=== PATIENT | male | born 1975 | race Two or more races ===

== ENCOUNTER 2016-04-24 10:39 | Emergency (ER) | payer MEDICAID ==
[~2016-04-24] VITALS: Ht 180.3 cm; Wt 81.6 kg
[2016-04-24 11:05] VITALS: BP 171/94
--- NOTE | 2016-04-24 11:30 | PHYS DOC ---
Adult General Chief Complaint Chief Complaint: ABSCESS HPI HPI Patient is a 40 year old male presents with an abscess to rectum for one week. Denies fever, body aches, or recent antibiotic use. Review of Systems Review of Systems Constitutional: Denies fever or chills Eyes: Denies change in visual acuity, redness, or eye pain HENT: Denies nasal congestion or sore throat Respiratory: Denies cough or shortness of breath Cardiovascular: No additional information not addressed in HPI GI: Denies abdominal pain, nausea, vomiting, bloody stools or diarrhea : Denies dysuria or hematuria Musculoskeletal: Denies back pain or joint pain Integument: Abscess by rectum x 2 days Neurologic: Denies headache, focal weakness or sensory changes [] Endocrine: Denies polyuria or polydipsia [] Current Medications Current Medications Current Medications Medications (Trade) Dose Ordered Sig/Isis Start Time Stop Time Status Last Admin Dose Admin Info (Do NOT chart on this entry -- for MONITORING) 1 each PRN DAILY PRN 04/24/16 12:30 04/24/16 14:03 DC Iohexol (Omnipaque 300 Mg/ml) 75 ml 1X ONCE 04/24/16 12:30 04/24/16 12:31 DC 04/24/16 12:33 75 ML Allergies Allergies Allergies Coded Allergies Type Severity Reaction Last Updated Verified No Known Drug Allergies 04/24/16 No Physical Exam Physical Exam Constitutional: Well developed, well nourished, no acute distress, non-toxic appearance. HENT: Normocephalic, atraumatic, bilateral external ears normal, oropharynx moist, no oral exudates, nose normal. Eyes: PERRLA, EOMI, conjunctiva normal, no discharge. Neck: Normal range of motion, no tenderness, supple, no stridor. Cardiovascular:Heart rate regular rhythm, no murmur Lungs & Thorax: Bilateral breath sounds clear to auscultation Abdomen: Bowel sounds normal, soft, no tenderness, no masses, no pulsatile masses. Skin: 2cm diameter area of erythema with small induration just distal to rectum on left buttock. Induration felt on rectal exam. Back: No tenderness, no CVA tenderness. Extremities: No tenderness, no cyanosis, no clubbing, ROM intact, no edema. [] Neurologic: Alert and oriented X 3, normal motor function, normal sensory function, no focal deficits noted. [] Psychologic: Affect normal, judgement normal, mood normal. [] Current Patient Data Vital Signs Vital Signs Date Time Temp Pulse Resp B/P Pulse Ox O2 Delivery O2 Flow Rate FiO2 04/24/16 11:05 98.0 74 16 98 Room Air 98.0 Lab Values Laboratory Tests Test 04/24/16 11:50 POC Hemoglobin 15.0g/dL (14-18) POC Hematocrit 44% (37-52) POC Sodium 140mmol/L (135-145) POC Potassium 4.5mmol/L (3.5-5.0) POC Chloride 102mmol/L (98-110) POC Total CO2 25mmol/L (23-32) Anion Gap 19mmol/L (6-14) H POC Blood Urea Nitrogen 11mg/dL (8-26) POC Creatinine 0.8mg/dL (0.5-1.4) Glucose Level 91mg/dL (70-99) POC Ionized Calcium ([place]) 1.15mmol/L (1.13-1.32) Laboratory Tests 04/24/16 11:50 EKG EKG [] Radiology/Procedures Radiology/Procedures [] Impressions: 1. Abscess Course & Med Decision Making Course & Med Decision Making Pertinent Labs and Imaging studies reviewed. (See chart for details) [] Dragon Disclaimer Dragon Disclaimer This electronic medical record was generated, in whole or in part, using a voice recognition dictation system. Departure Departure Impression: Primary Impression: Perirectal abscess Disposition: 01 HOME, SELF-CARE Condition: STABLE Referrals: NO PCP (PCP) TELLO MORAES MD Patient Instructions: Pearl-Rectal Abscess Additional Instructions: Take all medication as prescribed. Follow up with surgery as discussed. Return if fever, increased pain, or any problems or concerns. Scripts Docusate Sodium 100 Mg Capsule1 Cap PO BID #14 CAP Prov:CHIDI NEWELL APRN 04/24/16 Lidocaine Hcl (Lidocaine Hcl Viscous)20 Mg/1 Ml Solution5 Ml PO TID #100 ML Prov:CHIDI NEWELL APRN 04/24/16 Amoxicillin/Potassium Clav (Augmentin 875-125 Tablet)1 Each Tablet1 Tab PO BID # 14 TAB Prov:CHIDI NEWELL APRN 04/24/16 CHIDI NEWELL APRN Apr 24, 2016 11:30
[2016-04-24 11:53] LABS: POTASSIUM ISTAT 4.5 mmol/L (3.5-5.0)
[2016-04-24] MEDS ORDERED: IOHEXOL 300 MG/ML 75 ML VIAL IV ONE (12:30)
[2016-04-24] MEDS ORDERED: CONTRAST GIVEN MC PRN (12:30)
--- NOTE | 2016-04-24 13:12 | RAD ---
Exam performed: CT scan of the abdomen and pelvis with contrast Clinical Indication:Perirectal abscess Date of Service:04/24/16, comparison: None available Technique: Contiguous helical acquisitions are obtained from the lung bases to the pelvis during intravenous administration of 75 mL of Omnipaque 300. Sagittal and coronal reformatted images were obtained and reviewed. CT abdomen findings: The lung bases appear essentially clear. Visualized heart is normal The liver, spleen ,gall bladder and pancreas appears unremarkable. Both adrenal glands and bilateral kidneys appear normal with symmetric excretion of contrast via both kidneys. The small bowel loops appear nondilated and unremarkable. There is no retroperitoneal lymphadenopathy or mass lesions. No bowel related inflammatory stranding is noted. Appendix is not seen. No obvious stranding is seen in the pericecal region. CT pelvis findings: The pelvic bowel loops are nondilated and unremarkable. The urinary bladder is well distended and normal . Prostate gland, seminal vesicles and the rectum appear normal.Interrogation of bone windows demonstrates no obvious bony abnormality. Sagittal and coronal reformatted images were obtained and reviewed which demonstrate no additional findings. There is a probable tiny 9 mm collection in the left perirectal region. Impression abdomen and pelvis : 1. No acute intra-abdominal or pelvic process is detected. 2. Questionable 9 mm collection in the left perirectal region. No large drainable abscess is identified. PQRS Compliance Statement: One or more of the following individualized dose reduction techniques were utilized for this examination: 1. Automated exposure control 2. Adjustment of the mA and/or kV according to patient size 3. Use of iterative reconstruction technique
[2016-04-24] MEDS ORDERED: AMOX1TAB61 PO (13:42)
[2016-04-24] MEDS ORDERED: LIDO20SO PO (13:42)
[2016-04-24] MEDS ORDERED: DOCU100C5 PO (13:42)
== END 2016-04-24 13:50 | disposition home or self-care (01) ==
LOC: ER 10:39
DX: K61.1 Rectal abscess (principal)
CPT/HCPCS: 74177; 80047; 99284; Q9967